=== PATIENT | male | born 1995 | race Caucasian/White ===

== ENCOUNTER 2023-06-10 11:51 | Emergency (ER) | payer SELFPAY ==
[2023-06-10 11:54] VITALS: BP 143/98
[2023-06-10 12:15] VITALS: BMI 19.5
[2023-06-10 12:17] VITALS: BP 136/76
--- NOTE | 2023-06-10 12:19 | ED.GENMED ---
History of Present Illness
General
Chief Complaint: Flank Pain
Source: patient
Time Seen by Provider: 06/10/23 12:11
Travel History
Have you had any contact with someone who has COVID-19?: No
Do you have any symptoms of coronavirus? Fever > 100 degrees, chills, cough, shortness of breath, sore throat, loss of taste or smell, muscle aches, or headache?: No
History of Present Illness
History of Present Illness:
27-year-old male presents complaining of sudden onset left flank pain starting this morning. Pain radiates to his groin. Current time of my exam he states the pain is minimal. He was doubled over in pain upon EMS arrival. No prior history of
kidney stones. No fever. No urinary symptoms. No chest pain or shortness of breath.
Phy Exam
Physical Exam
Physical Exam:
General: Well-appearing male no acute respiratory distress
HEENT: Normocephalic atraumatic
Heart: Regular rate and rhythm no murmurs
Lungs: Clear to auscultation bilaterally
Abdomen is soft nontender nondistended no guarding or rebound mild left-sided costovertebral angle tender
Extremities: No cyanosis
Course
Orders/Labs/Results
Orders:
Orders
06/10/23 12:17
CT Abd/pel Without Iv Or Oral Urgent
Comment:
Reason For Exam: left flank pain
06/10/23 12:27
CMP [Comprehensive Metabolic Panel] Urgent
Complete Blood Count/With Diff Urgent
06/10/23 13:26
Urinalysis Reflex To Culture Urgent
Date Specimen was Collected: 06/10/23
Time Specimen was Collected: 13:19
Urine Microscopic Reflex Cult Urgent
Abnormal Lab Results
06/10/23 06/10/23
12:27 13:26
BUN 21 H mg/dl
(9-20)
Urine Ketones 1+ A
(Negative)
Ur Occult Blood Reflex 2+ A
(Negative)
06/10/23 12:27
06/10/23 12:27
Vital Signs
Initial and Last Documented VS:
Initial Vital Signs
Temp Pulse Resp BP Pulse Ox
97.7 F 73 16 143/98 99
06/10/23 11:54 06/10/23 11:54 06/10/23 11:54 06/10/23 11:54 06/10/23 11:54
Last Documented Vital Signs
Temp Pulse Resp BP Pulse Ox
97.7 F 63 16 136/76 100
06/10/23 11:54 06/10/23 12:17 06/10/23 12:17 06/10/23 12:17 06/10/23 12:17
MDM/Problems Addressed
Differential Diagnosis Includes:
Sudden left flank pain. Consider renal colic versus diverticulitis versus musculoskeletal flank pain
Will check urinalysis labs and CT. Currently patient is declining any pain medication
*Critical Care Note
Total Time (30-74mins, 75-104mins- exclusive of procedures): Not Applicable
Update Note
Update Note:
CT demonstrates mild hydronephrosis and 2 to 3 mm stone in the urinary bladder no other ureteral lithiasis noted. Suspect patient recently passed a kidney stone in his pain was related to the passing kidney stone. Labs okay. Urine still pending
but if negative anticipate discharge.
Urinalysis negative for infection.
ED Attending Note
-
Portions of this chart may have been created with voice recognition software.� Occasional wrong word or��sound alike� substitutions may have occurred due to the inherent limitations of voice recognition software.
Discharge Plan
Departure
Patient Disposition: Home (Routine Discharge)
Date of Disposition: 06/10/23
Time of Disposition: 14:33
Patient with high blood pressure during this ER visit?: No
Discharge Problem:
Kidney stone
Instructions: Kidney Stone, Adult ED
Referrals:
NONE,* [Family Provider] -
Activity Restrictions/Additional Instructions:
Drink plenty of fluids. Use ibuprofen if needed for residual pain. Return for worsening symptoms otherwise follow-up family doctor
Interventions
Interventions:
*Risk Screen - Suicide Last Done: 06/10/23 11:54
*General Assessment Last Done: 06/10/23 11:54
*Neglect/Abuse Screening Last Done: 06/10/23 11:54
ED- Fall Risk Assessment Last Done: 06/10/23 12:17
*ED COVID-19 Vaccine History Last Done: 06/10/23 12:15
VL-[place]-Mvidgmxwnw Assessment Last Done: 06/10/23 12:15
ED-Male Genitourinary Assessment Last Done: 06/10/23 12:15
[2023-06-10 12:39] LABS: % Basophils 1.1 % (0-2); % Eosinophils 3.2 % (0-6); % Immature Granulocytes 0.3 % (0-0.5); % Lymphocytes 24.9 % (20.5-51.1); % Monocytes 5.6 % (1.7-9.3); % Neutrophils 64.9 % (42.2-75.2); Absolute Basophils 0.1 10^3/uL (0-0.2); Absolute Eosinophils 0.2 10^3/uL (0-0.7); Absolute Lymphocytes 1.8 10^3/uL (1.2-3.4); Absolute Monocytes 0.4 10^3/uL (0.1-0.6); Absolute Neutrophils 4.7 10^3/uL (1.4-6.5); Hematocrit 42.4 % (39.0-52.0); Hemoglobin 15.6 g/dL (13.0-18.0); Mean Corp Hgb Conc. 36.8 g/dL (33.0-37.0); Mean Corpuscular Hgb 30.9 pg (27.0-31.0); Mean Platelet Volume 10.1 fL (7.4-10.4); Nucleated Red Blood Cells % 0 % (-); Platelet Count 206 10^3/uL (130-400); Red Blood Cell Count 5.05 10^6/uL (4.70-6.10); Red Cell Dist. Width 11.7 % (11.5-14.5); White Blood Cell Count 7.2 10^3/uL (4.8-10.8)
[2023-06-10 12:52] LABS: ALT (SGPT) 22 U/L (0-50); AST (SGOT) 23 U/L (17-59); Albumin 4.4 g/dl (3.5-5.0); Alkaline Phosphatase 63 U/L (38-126); Blood Urea Nitrogen 21 mg/dl (9-20); Calcium 9.7 mg/dl (8.4-10.2); Carbon Dioxide 28 mmol/L (22-30); Chloride 99 mmol/L (98-107); Estimated Creatinine Clearance > 125 ml/min; Glucose 98 mg/dl (70-99); Potassium 3.9 mmol/L (3.5-5.1); Sodium 137 mmol/L (135-145); Total Bilirubin 1.1 mg/dl (0.2-1.3); Total Protein 7.2 g/dl (6.3-8.2); eGFR > 60.00
[2023-06-10 14:27] LABS: Urine Albumin Negative (Neg - Trace); Urine Bilirubin Negative (Negative); Urine Character Clear (Clear); Urine Color Yellow; Urine Glucose Negative (Negative); Urine Ketone 1+ (Negative); Urine Leukocyte Negative (Negative); Urine Nitrite Negative (Negative); Urine Occult Blood 2+ (Negative); Urine Specific Gravity 1.015 (<1.030); Urine Urobilinogen Negative (Neg - 1+)
[2023-06-10 14:44] LABS: Urine White Cell 0-2 /HPF (0-5)
[2023-06-10 14:55] VITALS: BP 112/74
[2023-06-10 15:00] VITALS: BP 112/74
--- NOTE | 2023-06-10 15:00 | EDRN ---
Reviewed discharge instructions with patient. Verbalized understanding.
== END 2023-06-10 15:11 | disposition home or self-care (01) ==
LOC: EMR 11:51
PROVIDERS: Physician Assistant; EMERGENCY PHYSICIAN Emergency Medicine
DX: N20.0 Calculus of kidney (principal)
CPT/HCPCS: 99284; 74176; 80053; 81003; 81015; 85025

== ENCOUNTER 2023-06-14 06:17 | Emergency (ER) | payer SELFPAY ==
[2023-06-14 06:18] VITALS: BP 129/78; BMI 19.3
[2023-06-14] MEDS: ZOFRAN 4 MG IV (06:22)
[2023-06-14] MEDS: TORADOL 15 MG IV ×2 (06:22→10:39)
[2023-06-14] MEDS: NSS 1000 IV (06:26)
[2023-06-14 06:31] LABS: % Basophils 0.8 % (0-2); % Eosinophils 1.1 % (0-6); % Immature Granulocytes 0.4 % (0-0.5); % Lymphocytes 15.4 % (20.5-51.1); % Monocytes 4.2 % (1.7-9.3); % Neutrophils 78.1 % (42.2-75.2); Absolute Basophils 0.1 10^3/uL (0-0.2); Absolute Eosinophils 0.1 10^3/uL (0-0.7); Absolute Lymphocytes 1.2 10^3/uL (1.2-3.4); Absolute Monocytes 0.3 10^3/uL (0.1-0.6); Absolute Neutrophils 5.9 10^3/uL (1.4-6.5); Hematocrit 38.4 % (39.0-52.0); Hemoglobin 14.2 g/dL (13.0-18.0); Mean Corpuscular Hgb 31.1 pg (27.0-31.0); Mean Platelet Volume 10.1 fL (7.4-10.4); Nucleated Red Blood Cells % 0 % (-); Platelet Count 197 10^3/uL (130-400); Red Blood Cell Count 4.57 10^6/uL (4.70-6.10); Red Cell Dist. Width 11.8 % (11.5-14.5); White Blood Cell Count 7.6 10^3/uL (4.8-10.8)
[2023-06-14 06:45] LABS: ALT (SGPT) 22 U/L (0-50); AST (SGOT) 26 U/L (17-59); Albumin 4.4 g/dl (3.5-5.0); Alkaline Phosphatase 70 U/L (38-126); Blood Urea Nitrogen 18 mg/dl (9-20); Carbon Dioxide 25 mmol/L (22-30); Chloride 106 mmol/L (98-107); Estimated Creatinine Clearance 121 ml/min; Glucose 116 mg/dl (70-99); Potassium 3.5 mmol/L (3.5-5.1); Sodium 138 mmol/L (135-145); Total Bilirubin 0.8 mg/dl (0.2-1.3); eGFR > 60.00
--- NOTE | 2023-06-14 07:05 | ED.GENMED ---
History of Present Illness
General
Chief Complaint: Abdominal Pain
Source: patient and ambulance crew
Exam Limitations: none
Time Seen by Provider: 06/14/23 06:18
Nursing documentation reviewed up to this point in time: agreed with
Travel History
Have you had any contact with someone who has COVID-19?: No
Do you have any symptoms of coronavirus? Fever > 100 degrees, chills, cough, shortness of breath, sore throat, loss of taste or smell, muscle aches, or headache?: No
History of Present Illness
History of Present Illness:
27-year-old male with no chronic medical issues presents to the emergency room from home via EMS for evaluation of left flank/abdominal pain. Patient was notably seen in this emergency room 06/10/2023 for flank pain on the left side. At that point
he had a CT scan which showed mild hydronephrosis and appeared to be recently passed a 2 to 3 mm stone in the urinary bladder. There was a 5 mm intrarenal stone that was considered nonobstructive. He was pain-free and was discharged home. He says
that he did not have any pain after discharge until this morning around 3:30 AM he woke up with severe pain in the left flank/lower abdomen which has been consistent since onset. He has some nausea and dry heaving. Has not had any diarrhea or
constipation. No dysuria, hematuria, change in urinary frequency. No fevers or chills. Denies any trauma or injury.
Review of Systems
Review of Systems
All Other Systems: ROS reviewed and negative except as documented in HPI and ROS
Constitutional: Denies fever or chills
Respiratory: Denies trouble breathing
Cardiac: Denies chest pain
ABD/GI: Reports abdominal pain, nausea and vomiting; Denies diarrhea
: Reports flank pain; Denies dysuria or frequency
Musculoskeletal: Denies neck pain or back pain
Neurological: Denies headache
Phy Exam
Physical Exam
Physical Exam:
General: Awake, alert, shifting in bed in significant pain
Head: Normocephalic, atraumatic
Eyes: Conjunctiva normal, sclera anicteric
Throat: Airway intact, handling secretions
Neck: Trachea midline, supple without meningismus
Lungs: Clear to auscultation bilaterally, no wheezing, rales, rhonchi
Heart: Regular rate and rhythm, no murmurs, gallops, or rubs
Abd: Soft, non distended, nontender
Back: No CVA tenderness
Neuro: No gross deficit
Skin: no rash
Extremities: Warm well-perfused
Scores
Heart Failure Risk
Heart Failure Risk Score: Not Applicable
Heart Score for Chest Pain Patients
STEMI patient?: Not applicable
Withdrawal Assessment of Alcohol
Withdrawal Assessment Completed?: Not applicable
Course
Orders/Labs/Results
Orders:
Orders
06/14/23 06:18
0.9% Sodium Chloride 1000 ml [Nss] 1,000 ml IV BOLUS
Ketorolac [Toradol] 15 mg IV NOW STA
Ondansetron Injectable [Zofran] 4 mg IV NOW STA
06/14/23 06:19
CT Abd/pel Without Iv Or Oral Urgent
Comment:
Reason For Exam: left flank pain
06/14/23 06:20
HYDROmorphone [Dilaudid] 1 mg IV ONCE PRN PRN
06/14/23 06:24
Complete Blood Count/With Diff Urgent
Comprehensive Metabolic Panel Urgent
06/14/23 09:31
Urinalysis Reflex To Culture Urgent
Date Specimen was Collected: 06/14/23
Time Specimen was Collected: 09:29
Urine Microscopic Reflex Cult Urgent
Abnormal Lab Results
06/14/23 06/14/23
06:24 09:31
RBC 4.57 L 10^6/uL
(4.70-6.10)
Hct 38.4 L %
(39.0-52.0)
MCH 31.1 H pg
(27.0-31.0)
Neutrophils % 78.1 H %
(42.2-75.2)
Lymphocytes % 15.4 L %
(20.5-51.1)
Glucose 116 H mg/dl
(70-99)
Urine Ketones 2+ A
(Negative)
Ur Occult Blood Reflex 4+ A
(Negative)
Leukocyte Esterase Rfl Trace A
(Negative)
06/14/23 06:24
06/14/23 06:24
Vital Signs
Initial and Last Documented VS:
Initial Vital Signs
Temp Pulse Resp BP Pulse Ox
36.8 C 59 24 129/78 100
06/14/23 06:18 06/14/23 06:18 06/14/23 06:18 06/14/23 06:18 06/14/23 06:18
Last Documented Vital Signs
Temp Pulse Resp BP Pulse Ox
36.8 C 59 24 129/78 100
06/14/23 06:18 06/14/23 06:18 06/14/23 06:18 06/14/23 06:18 06/14/23 06:18
MDM/Problems Addressed
Differential Diagnosis Includes:
Kidney stone, UTI, diverticulitis
MDM/Problems Addressed:
27-year-old male presents for evaluation of acute onset left flank/abdominal pain; had recent 2 to 3 mm stone which he passed and had been pain-free. CT scan a few days ago did show a 5 mm calculus in the left kidney that was nonobstructive.
Clinical picture seems consistent with obstructive nephrolithiasis likely related to that 5 mm stone seen on earlier CT. IV placed labs sent off including a CBC and a CMP and will check urinalysis. Will send for CT abdomen pelvis. Will treat pain
and nausea. Provide fluids. Reassess after the above.
Patient's pain greatly improved with Toradol and Zofran. His initial blood work was reviewed and his CBC is unremarkable, CMP shows normal renal function no electrolyte derangements. CT of the abdomen pelvis shows obstructive 4 to 5 mm stone in
the distal left ureter with hydronephrosis. Will continue to monitor here pending urinalysis. His pain is well-controlled at this point would consider trial of passage if no signs of infection on urinalysis; he has no signs to suggest sepsis at
this point with no fever and no leukocytosis.
Urinalysis shows no signs of an acute infection. Patient has actually had complete resolution of his pain after Toradol. Stone was at the [facility] on CT possibly passed the stone or simply that his pain is well-controlled with NSAIDs. Regardless even
if stone not yet passed I think he is a reasonable candidate for a trial of passage as he has no signs of infection or sepsis, normal renal function and his pain is extremely well-controlled. He feels comfortable with this plan. Spoke about return
precautions all questions answered.
*Radiology
Radiology exam reviewed: preliminary read by ED provider (Initial CT reviewed by me shows obstructive stone distal left ureter with hydronephrosis on the left) and radiology read reviewed
*Pulse Oximetry
Patient hypoxic: no
*Critical Care Note
Total Time (30-74mins, 75-104mins- exclusive of procedures): Not Applicable
Data Reviewed
Review of Other/Old Records Reveals: Labs, Records and Radiology Studies
Source: patient and records
ED Attending Note
-
Portions of this chart may have been created with voice recognition software.� Occasional wrong word or��sound alike� substitutions may have occurred due to the inherent limitations of voice recognition software.
Discharge Plan
Departure
Patient Disposition: Home (Routine Discharge)
Date of Disposition: 06/14/23
Time of Disposition: 10:21
Patient with high blood pressure during this ER visit?: No
Discharge Problem:
Left nephrolithiasis
Instructions: Kidney Stones (DC)
Prescriptions:
New
tamsulosin [Flomax] 0.4 mg capsule
0.4 mg PO DAILY Qty: 10 0RF
oxycodone 5 mg tablet
5 mg PO Q8H PRN (Reason: Pain) Qty: 5 0RF
Referrals:
José Miguel Flores MD [Family Provider] - Call in 1-3 days for appt
Dakota Scherer MD [Active] - As needed
Activity Restrictions/Additional Instructions:
Thank you for visiting the Emergency Department at [facility].
1. Please schedule a follow up appointment as directed. Call first thing tomorrow morning to make an appointment.
2. If indicated, please take your medications as instructed and indicated on discharge paperwork.
3. If any of your symptoms do not improve, or persist, or become more severe within 6-12 hours, please return to the emergency department for further care.
4. Please return to the emergency department if you develop a headache, neck pain/stiffness, fever greater than 100.4F, chest pain, shortness of breath, persistent nausea, vomiting, slurred speech, difficulty walking, numbness/tingling, weakness,
signs of infection or any other symptoms that are worrisome to you.
Please call [phone] if you have any questions.
Interventions
Interventions:
*Risk Screen - Suicide Last Done: 06/14/23 06:18
*General Assessment Last Done: 06/14/23 06:18
GS-Grdhsz-Wvnomhpvwr Assessment Last Done: 06/14/23 06:22
[2023-06-14 09:45] LABS: Urine Albumin Trace (Neg - Trace); Urine Bilirubin Negative (Negative); Urine Character Slightly Cloudy (Clear); Urine Color Yellow; Urine Glucose Negative (Negative); Urine Ketone 2+ (Negative); Urine Leukocyte Trace (Negative); Urine Nitrite Negative (Negative); Urine Occult Blood 4+ (Negative); Urine Specific Gravity 1.015 (<1.030); Urine Urobilinogen Negative (Neg - 1+); Urine pH 6.5 (5.0-9.0)
[2023-06-14] MEDS: DILAUDID 1 MG IV (10:40)
[2023-06-14] MEDS: TYLENOL 1000 MG PO (10:43)
[2023-06-14] MEDS: FLOMAX 0.400000000000000022 MG PO (10:43)
[2023-06-14 10:46] VITALS: BP 128/77
[2023-06-14 11:30] LABS: Urine Red Blood Cell 30-40 /HPF (0-2)
== END 2023-06-14 11:38 | disposition home or self-care (01) ==
LOC: EMR 06:17
PROVIDERS: EMERGENCY PHYSICIAN Emergency Medicine; FAMILY PHYSICIAN Family Medicine
DX: N13.2 Hydronephrosis with renal and ureteral calculous obstruction (principal)
CPT/HCPCS: 99284; 96374; 96375 ×2; 96361; 96376; 74176; 80053; 81003; 81015; 85025

== ENCOUNTER → 2023-06-17 09:51 | Outpatient (REF) | payer SELFPAY | LOC: RAD 09:51 | PROVIDERS: ATTENDING PHYSICIAN Surgery; FAMILY PHYSICIAN Family Medicine | DX: N13.2 Hydronephrosis with renal and ureteral calculous obstruction (principal) | CPT/HCPCS: 74018 ==

== ENCOUNTER → 2023-06-19 09:17 | Outpatient (REF) | payer SELFPAY ==
[2023-06-24 13:23] LABS: Stone Analysis Mass 46 mg
== END ==
LOC: CLAB 09:17
PROVIDERS: ATTENDING PHYSICIAN Surgery
DX: N20.0 Calculus of kidney (principal)
CPT/HCPCS: 82365